=== PATIENT | male | born 1965 | race Caucasian/White ===

== ENCOUNTER 2022-05-23 19:00 | Emergency (ER) | payer OTHER ==
[~2022-05-23] VITALS: Ht 175.3 cm; Wt 77.1 kg
[2022-05-23] MEDS ORDERED: SYNTHROID112 MCG PO (19:10)
[2022-05-23] MEDS ORDERED: COZAAR100 MG PO (19:10)
== END 2022-05-23 22:38 | disposition home or self-care (01) ==
LOC: ER 19:00
DX: S00.83XA Contusion of other part of head, initial encounter (principal); S60.221A Contusion of right hand, initial encounter; S70.02XA Contusion of left hip, initial encounter; W18.30XA Fall on same level, unspecified, initial encounter; Y93.89 Activity, other specified; Y92.018 Other place in single-family (private) house as the place of occurrence of the external cause; Y99.9 Unspecified external cause status; M25.552 Pain in left hip; M79.641 Pain in right hand; I10 Essential (primary) hypertension; Z91.013 Allergy to seafood